=== PATIENT | female | born 1995 | race Caucasian/White ===

== ENCOUNTER 2017-04-24 18:38 | Emergency (ER) | payer OTHER ==
[2017-04-24 18:50] VITALS: BP 146/93; PULSE 72; RESP 20; TEMP 98.1
--- NOTE | 2017-04-24 19:11 | ED ---
Upper Extremity HPI - General Chief Complaint: Extremity Injury, Upper Stated Complaint: left shoulder injury Time Seen by Provider: 04/24/17 19:05 Source: patient, RN notes reviewed Mode of arrival: ambulatory Limitations: no limitations - History of Present Illness Initial Comments: 21-year-old female presents emergency Department chief complaint of left elbow pain. Patient states his pain in her bed frame together and it fell down and hurt her left elbow. Patient has noticed some bruising and some on and off swelling around the elbow since that she was concerned. Patient states that he can move the hand and arm at times. Patient states her pain is moderate. Patient states that she was not currently having any other symptoms at this time. Patient denies any recent fever, chills, shortness of breath, chest pain, back pain, abdominal pain, nausea vomiting, numbness or tingling, dysuria or hematuria, constipation or diarrhea, headaches or visual changes, or any other current symptoms. - Related Data Allergies Allergy/AdvReac Type Severity Reaction Status Date / Time No Known Allergies Allergy Verified 04/24/17 18:50 Review of Systems ROS Statement: Those systems with pertinent positive or pertinent negative responses have been documented in the HPI. ROS Other: All systems not noted in ROS Statement are negative. Past Medical History Past Medical History: No Reported History History of Any Multi-Drug Resistant Organisms: None Reported Past Surgical History: No Surgical Hx Reported Past Psychological History: No Psychological Hx Reported Smoking Status: Never smoker Past Alcohol Use History: Occasional Past Drug Use History: None Reported General Exam Limitations: no limitations Neck exam: Present: normal inspection. Absent: tenderness, meningismus, lymphadenopathy Respiratory exam: Present: normal lung sounds bilaterally. Absent: respiratory distress, wheezes, rales, rhonchi, stridor Cardiovascular Exam: Present: regular rate, normal rhythm, normal heart sounds. Absent: systolic murmur, diastolic murmur, rubs, gallop, clicks Left Shoulder Exam: Present: normal inspection, full ROM. Absent: tenderness, swelling Upper Arm exam: Present: full ROM, tenderness (Ecchymosis and swelling to the left elbow), swelling (Mild), ecchymosis. Absent: abrasion, laceration, deformity Elbow exam: Present: full ROM, tenderness (Over the ecchymosis), swelling Forearm Wrist exam: Present: normal inspection, full ROM. Absent: tenderness, swelling Hand Wrist exam: Present: normal inspection, full ROM. Absent: tenderness, swelling Back exam: Present: normal inspection Course Vital Signs 04/24/17 18:47 Temperature 98.1 F Pulse Rate 72 Respiratory 20 Rate Blood Pressure 146/93 O2 Sat by Pulse 99 Oximetry Medical Decision Making - Medical Decision Making 21-year-old female emergency department with a chief complaint of left arm injury. This time x-rays reviewed. This time she appears to the left elbow contusion. We discussed ice Motrin Tylenol. Discussed return parameters and follow-up. We discussed care. Patient states she understood all questions have been answered. She'll be discharged home. - Radiology Data Radiology results: report reviewed, image reviewed Disposition Clinical Impression: Contusion of left elbow, initial encounter Disposition: HOME SELF-CARE Condition: Stable Instructions: Contusion in Adults (ED) Additional Instructions: Patient denies any recent fever, chills, shortness of breath, chest pain, back pain, abdominal pain, nausea vomiting, numbness or tingling, dysuria or hematuria, constipation or diarrhea, headaches or visual changes, or any other current symptoms. Referrals: Criselda Faust MD [STAFF PHYSICIAN] - 1-2 days Time of Disposition: 19:44
--- NOTE | 2017-04-24 19:42 | XR ---
EXAMINATION TYPE: XR elbow complete LT DATE OF EXAM: 04/24/2017 CLINICAL HISTORY: Left elbow pain and bruising after injury. TECHNIQUE: Frontal, lateral and oblique images of the left elbow are obtained. COMPARISON: None FINDINGS: There is no acute fracture/dislocation evident in the left elbow. No abnormal fat pad sig ns are seen. The overlying soft tissue appears unremarkable. IMPRESSION: There is no acute fracture or dislocation in the left elbow.
== END 2017-04-24 19:52 | disposition home or self-care (01) ==
LOC: EC 18:38
DX: S50.02XA Contusion of left elbow, initial encounter (principal); X58.XXXA Exposure to other specified factors, initial encounter; Y93.89 Activity, other specified
CPT/HCPCS: 99283

== ENCOUNTER 2017-06-09 20:04 | Emergency (ER) | payer OTHER ==
[2017-06-09 20:25] VITALS: RESP 18
--- NOTE | 2017-06-09 21:41 | XR ---
EXAMINATION TYPE: XR chest 2V DATE OF EXAM: 06/09/2017 COMPARISON: NONE HISTORY: Syncope TECHNIQUE: Frontal and lateral views of the chest are obtained. FINDINGS: Heart and mediastinum are normal. Lungs are clear. Diaphragm is normal. Bony thorax is int act. There is a dilated gas-filled stomach. IMPRESSION: Normal chest. Large gas-filled stomach consistent with air swallowing.
--- NOTE | 2017-06-09 22:28 | ED ---
Syncope HPI - General Chief Complaint: Syncope Stated Complaint: Syncope Time Seen by Provider: 06/09/17 20:28 Source: patient Mode of arrival: ambulatory Limitations: no limitations - History of Present Illness Initial Comments: 21-year-old female with past medical history of syncopal moments presented for evaluation of 2 episodes of syncope prior to arrival to the ED. She states that she was out at an event with her friends and she got out of the van she felt her sugar catch on the door. This jerked her backwards however she denies any pain or trauma. She unhooked herself and then states that she didn't feel herself and passed out. A friend was watching her at this time and states that she just Leaned into the car and slid down the side. Loss of consciousness was seconds and then she woke up. She was helped into the car by her who then states she had another syncopal moment about 45 seconds later that lasted seconds. There was 30 seconds of confusion and that she was back at her baseline talking and conversing appropriately and laughing at jokes. EMS was called and they found her blood sugar to be 93 with appropriate blood pressure and heart rate. However given her symptoms her wanted her brought to the ED for further treatment and evaluation. She states that she had a previous episode like this some years ago and had no workup. She denies being at this time having fevers, chills, nausea, vomiting, chest pain, shortness of breath. - Related Data Home Medications Medication Instructions Recorded Confirmed EPINEPHrine [Epipen 2-Yevgeniy] 0.3 mg IM ONCE PRN 06/09/17 06/09/17 Loratadine [Claritin] 10 mg PO DAILY PRN 06/09/17 06/09/17 Allergies Allergy/AdvReac Type Severity Reaction Status Date / Time amoxicillin Allergy Unknown Verified 06/09/17 21:34 Childhood bee venom protein (honey bee) Allergy Anaphylaxis Verified 06/09/17 21:35 spider venom Allergy Anaphylaxis Verified 06/09/17 21:35 pseudoephedrine AdvReac Abdominal Verified 06/09/17 21:35 Pain Review of Systems ROS Statement: Those systems with pertinent positive or pertinent negative responses have been documented in the HPI. ROS Other: All systems not noted in ROS Statement are negative. Constitutional: Denies: fever, chills Eyes: Denies: eye pain, vision change ENT: Denies: ear pain, throat pain Respiratory: Denies: cough, dyspnea Cardiovascular: Reports: syncope. Denies: chest pain, palpitations Endocrine: Denies: fatigue, polydipsia, polyuria Gastrointestinal: Denies: abdominal pain, nausea, vomiting Genitourinary: Denies: urgency, dysuria Musculoskeletal: Denies: back pain, arthralgia Skin: Denies: rash, lesions Neurological: Reports: other. Denies: headache Psychiatric: Denies: anxiety, depression (Syncope) Hematological/Lymphatic: Denies: easy bleeding, easy bruising Past Medical History Past Medical History: No Reported History History of Any Multi-Drug Resistant Organisms: None Reported Past Surgical History: No Surgical Hx Reported Past Psychological History: No Psychological Hx Reported Smoking Status: Never smoker Past Alcohol Use History: Occasional Past Drug Use History: None Reported General Exam Limitations: no limitations General appearance: alert, in no apparent distress, anxious (Only when talking about obtaining IV access) Head exam: Present: atraumatic, normocephalic, normal inspection Eye exam: Present: normal appearance, PERRL, EOMI. Absent: scleral icterus, conjunctival injection, periorbital swelling ENT exam: Present: normal exam, mucous membranes moist Neck exam: Present: normal inspection. Absent: tenderness, meningismus, lymphadenopathy Respiratory exam: Present: normal lung sounds bilaterally. Absent: respiratory distress, wheezes, rales, rhonchi, stridor Cardiovascular Exam: Present: regular rate, normal rhythm, normal heart sounds. Absent: systolic murmur, diastolic murmur, rubs, gallop, clicks GI/Abdominal exam: Present: soft, normal bowel sounds. Absent: distended, tenderness, guarding, rebound, rigid Rectal exam: Present: deferred Extremities exam: Present: normal inspection, full ROM, normal capillary refill. Absent: tenderness, pedal edema, joint swelling, calf tenderness Back exam: Present: normal inspection Neurological exam: Present: alert, oriented X3, CN II-XII intact Psychiatric exam: Present: normal affect, normal mood Skin exam: Present: warm, dry, intact, normal color. Absent: rash Course Vital Signs 06/09/17 06/09/17 20:23 22:40 Temperature 98.9 F 98.7 F Pulse Rate 84 78 Respiratory 18 18 Rate Blood Pressure 123/79 121/74 O2 Sat by Pulse 99 100 Oximetry EKG Findings - EKG Comments: EKG Findings:: Sinus rhythm with sinus arrhythmia with short AK. Ventricular rate 66, SHERRY 102, QRS 82, QT/QTC 392/410. Medical Decision Making - Medical Decision Making 21-year-old female with a past medical history of a syncopal moments presented for evaluation of 2 syncopal moments today. No identifiable etiology preceding the event which lasted merely seconds. She has returned to her baseline and has no complaints at this time. On physical examination cranial nerves II through XII are intact without focal neurologic deficit and she has normal gait and station. Lungs are clear to auscultation bilaterally and vitals are within normal limits. EKG showed above. Chest x-ray shows no acute process. Attempted to obtain IV access for blood work over the patient became markedly anxious and agitated stating a fear of needles. The pros and cons of lab work were discussed with the patient and she still stated at this time since she was feeling at her baseline with no complaints she would like to forego any lab work and be discharged home. She was given exposes information for return to the ED and after going through multiple scenarios she acknowledged an understanding of all information provided and agreed with plan to discharge home. She is further informed to follow-up with her primary care physician this week which she stated that she would do. Disposition Clinical Impression: Syncope Disposition: HOME SELF-CARE Condition: Stable Instructions: Syncope (ED) Referrals: None,Stated [Primary Care Provider] - 1-2 days Time of Disposition: 22:28
[2017-06-09 22:41] VITALS: BP 121/74; PULSE 78; TEMP 98.7
== END 2017-06-09 22:41 | disposition home or self-care (01) ==
LOC: EC 20:04
DX: R55 Syncope and collapse (principal); Z88.0 Allergy status to penicillin; Z91.030 Bee allergy status; Z88.8 Allergy status to other drugs, medicaments and biological substances; Z91.038 Other insect allergy status
CPT/HCPCS: 71020; 93005; 99284

== ENCOUNTER 2021-09-18 13:12 | Outpatient (CLI) | payer OTHER ==
[2021-09-18 13:54] VITALS: BP 121/76; PULSE 73; RESP 18; TEMP 98.5
--- NOTE | 2021-09-20 08:05 | P.MSEPDOC ---
Presenting Problems - Arrival Data Date of Arrival on Unit: 09/18/21 Time of Arrival on Unit: 13:12 Mode of Transport: Ambulatory - Complaint OB-Reason for Admission/Chief Complaint: NST Medical History - Information : 2 Para: 1 Term: 0 : 0 Abortions: Spontaneous or Elective: 0 Number of Living Children: 1 - Gestational Age Gestational Age by NATALIE (wks/days): 36 Weeks and 2 Days - History Complications: Incompetent Cervix Comment: NST, previous cs at 32 weeks. Review of Systems - Review of Systems Constitutional: No problems Breast: No problems ENT: No problems Cardiovascular: No problems Respiratory: No problems Gastrointestinal: No problems Genitourinary: No problems Musculoskeletal: No problems Neurological: No problems Skin: No problems Vital Signs - Temperature Temperature: 98.5 F Temperature Source: Temporal Artery Scan - Pulse Right Sitting Brachial Pulse Rate: 73 Pulse Assessment Method: Automatic Cuff - Respirations Respiratory Rate: 18 Oxygen Delivery Method: Room Air O2 Sat by Pulse Oximetry: 0 - Blood Pressure Right Arm Sitting Blood Pressure: 121/76 Blood Pressure Mean: 91 Blood Pressure Source: Automatic Cuff Physician Notification - Physician Notified Physician Notified Date: 09/18/21 Physician Notified Time: 13:45 Physician: Sudeep Kurtz Order Received: Yes - Notification Comment Comment: Dc home. Follow up in the office as scheduled. Maternal Triage Index - Maternal Triage Index Presenting for scheduled procedure w/no complaint: No - Stat/Priority 1 Stat Priority 1: No - Urgent/Priority 2 Urgent Priority 2: No - Prompt/Priority 3 Prompt Priority 3: No - Non-Urgent/Priority 4 Non-Urgent Priority 4: No - Scheduled/Requesting Priority 5 Scheduled/Requesting Priority 5: Yes Criteria Met for Priority 5: NST, dx. IUGR Disposition - Disposition OB Disposition: Discharge to home Discharge Date: 09/18/21 Discharge Time: 13:50 I agree with the RN Medical Screening Exam: Yes Case reviewed; plan agreed upon as documented in EMR&OBIX.: Yes Diagnosis: RELATED CONDITIONS, UNSPECIFIED, THIRD TRIMESTER
== END 2021-09-18 13:45 | disposition home or self-care (01) ==
LOC: FBPOP 13:12
PROVIDERS: ATTEND Obstetrics & Gynecology
DX: Z36.4 Encounter for antenatal screening for fetal growth retardation (principal); Z3A.36 36 weeks gestation of pregnancy; Z88.1 Allergy status to other antibiotic agents; Z91.030 Bee allergy status; Z91.038 Other insect allergy status; Z88.5 Allergy status to narcotic agent
CPT/HCPCS: 59025

== ENCOUNTER 2021-10-04 02:42 | Inpatient (IN) | payer BC, OTHER ==
[2021-10-04] MEDS ORDERED: CARBOPROST TROMETHAMINE 250 MCG/ML 1 ML AMP IM PRN (03:40)
[2021-10-04] MEDS ORDERED: METHYLERGONOVINE 0.2 MG/ML 1 ML AMP IM PRN (03:40)
[2021-10-04] MEDS ORDERED: TERBUTALINE 1 MG/ML VIAL SQ PRN (03:40)
[2021-10-04] MEDS ORDERED: OXYTOCIN 10 UNIT/ML 1 ML VIAL IM PRN (03:40)
[2021-10-04] MEDS ORDERED: LIDOCAINE 0.5% (PF) 5 MG/ML (50 ML SDV) SQ PRN (03:40)
[2021-10-04] MEDS ORDERED: LACTATED RINGERS 1,000 ML IV SCH (03:45)
[2021-10-04] MEDS ORDERED: OXYTOCIN 30 UNITS/500 ML NS 30 UNIT in SALINE 1 500ML.BAG IV SCH ×2 (03:45→05:45)
[2021-10-04] MEDS ORDERED: CITRIC ACID-SODIUM CITRATE 15 ML CUP PO ONE (04:19)
--- NOTE | 2021-10-04 04:29 | P.HPOB ---
History of Present Illness H&P Date: 10/04/21 Chief Complaint: Spontaneous rupture of membranes This is a 25-year-old female 2 para 1 with an estimated date of confinement of 10/14/2021, estimated gestational age of 38-4/7 weeks, who presented to labor and delivery with complaints of spontaneous rupture of membr anes at approximately 1:45 AM this morning with clear fluid noted. She does complain of irregular contractions on admission which have become stronger and more regular since arrival. care has been with Dr. Kurtz and has been uncomplicated during this . She does have a previous section with her last at 32 weeks for severe intrauterine growth restriction. She is scheduled for a repeat section with tubal ligation on Saturday. labs: GC/Chlamydia/Trichomonas-negative Hepatitis B surface antigen-negative RPR-nonreactive Rubella-immune What type-O+ Antibody screen-negative HIV-nonreactive Hemoglobin-13.9 Random glucose-110 One hour Glucola-159 Three-hour Glucola-within normal limits Group B streptococcus-positive Obstetrical history: . History of 1 previous section at 32 weeks due to severe intrauterine growth restriction. weighed 2 lbs. 14 oz. Gynecologic history: Noncontributory Social history: She is . She works at a [employer]. Review of Systems Constitutional: Denies chills, Denies fever Eyes: denies blurred vision, denies pain Ears, nose, mouth and throat: Denies headache, Denies sore throat Cardiovascular: Denies chest pain, Denies shortness of breath Respiratory: Denies cough Gastrointestinal: Reports abdominal pain (Contractions) Genitourinary: Reports pelvic pain, Reports Musculoskeletal: Reports low back pain Integumentary: Denies pruritus, Denies rash Neurological: Denies numbness, Denies weakness Psychiatric: Denies anxiety, Denies depression Past Medical History Past Medical History: No Reported History History of Any Multi-Drug Resistant Organisms: None Reported Past Surgical History: Section Past Anesthesia/Blood Transfusion Reactions: No Reported Reaction Past Psychological History: No Psychological Hx Reported Smoking Status: Never smoker Past Alcohol Use History: Occasional Past Drug Use History: None Reported - Past Family History Father History Unknown: Yes Medications and Allergies Home Medications Medication Instructions Recorded Confirmed Type Aspirin 81 mg PO DAILY 09/18/21 10/04/21 History Pnv,Calcium 72/Iron/Folic Acid 1 each PO DAILY 09/18/21 10/04/21 History [ Plus Tablet] Allergies Allergy/AdvReac Type Severity Reaction Status Date / Time bee venom protein (honey bee) Allergy Anaphylaxis Verified 06/09/17 21:35 spider venom Allergy Anaphylaxis Verified 06/09/17 21:35 Exam Osteopathic Statement: *. No significant issues noted on an osteopathic structural exam other than those noted in the History and Physical/Consult. Vital Signs Temp Pulse Resp BP Pulse Ox 10/04/21 03:39 96.8 F L 80 17 128/87 100 Intake and Output 10/03/21 10/03/21 10/04/21 14:59 22:59 06:59 Other: Weight 93.894 kg HEENT: Within normal limits Heart: Regular rate and rhythm Lungs: Clear to auscultation bilaterally Abdomen: heart tones: Category 1 Contractions: Every 1-2 minutes Cervix: Positive amnisure with clear fluid noted. Cervix is 2-1/2 cm per nursing staff. Extremities: Negative Homans Assessment and Plan (1) 38 weeks gestation of Current Visit: Yes Status: Acute Code(s): Z3A.38 - 38 WEEKS GESTATION OF SNOMED Code(s): 28186934 (2) Previous delivery affecting Current Visit: Yes Status: Acute Code(s): O34.219 - MATERNAL CARE FOR UNSP TYPE SCAR FROM PREVIOUS DEL SNOMED Code(s): 128854474 (3) Family planning Current Visit: Yes Status: Acute Code(s): Z30.09 - ENCOUNTER FOR OTH GENERAL CNSL AND ADVICE ON CONTRACEPTION SNOMED Code(s): 574731223 Plan: Plan is admission for urgent repeat section with bilateral partial salpingectomy. I have discussed the risks, benefits, and alternative therapies for the above- mentioned procedure and for both sedation/anesthesia as well as necessary blood products administration, if indicated, as they pertain to this patient. The patient has indicated her understanding and acceptance of the risks and procedures discussed.
[2021-10-04 04:30] LABS: Basophils % (A) 0 %; Eosinophils # (A) 0.1 k/uL (0-0.7); Eosinophils % (A) 1 %; HCT 35.4 % (34.0-46.0); HGB 11.3 gm/dL (11.4-16.0); Hypochromasia Slight; Lymphocytes # (A) 2.9 k/uL (1.0-4.8); Lymphocytes % (A) 22 %; MCH 24.9 pg (25.0-35.0); MCV 77.7 fL (80.0-100.0); Mean Platelet Volume 9.6; Monocytes # (A) 0.7 k/uL (0-1.0); Monocytes % (A) 5 %; Neutrophils # (A) 9.2 k/uL (1.3-7.7); Neutrophils % (A) 71 %; Platelet Count 339 k/uL (150-450); Poikilocytosis Slight; RBC 4.55 m/uL (3.80-5.40); RDW 14.8 % (11.5-15.5)
[2021-10-04] MEDS ORDERED: ONDANSETRON 4 MG/2 ML VIAL ONE (04:36)
[2021-10-04] MEDS ORDERED: OXYTOCIN 30 UNITS/500 ML NS BAG IV ONE (04:36)
[2021-10-04] MEDS ORDERED: NALBUPHINE 10 MG/ML (1 ML AMP) ONE (04:36)
[2021-10-04] MEDS ORDERED: MORPHINE SULFATE (PF) 0.3 MG/0.3 ML SYR ONE (04:36)
[2021-10-04] MEDS ORDERED: ePHEDrine 50 MG/ML 1 ML AMP ONE (04:36)
[2021-10-04] MEDS ORDERED: KETOROLAC 15 MG/ML 1 ML VIAL ONE (04:36)
[2021-10-04] MEDS ORDERED: ONDANSETRON 4 MG/2 ML VIAL IVP PRN ×2 (05:18→05:45)
[2021-10-04] MEDS ORDERED: KETOROLAC 30 MG/ML 1 ML VIAL IVP PRN (05:18)
[2021-10-04] MEDS ORDERED: NALOXONE 0.4 MG/ML 1 ML VIAL IV PRN ×2 (05:18→05:45)
[2021-10-04] MEDS ORDERED: diphenhydrAMINE 50 MG/ML 1 ML VIAL IVP PRN ×3 (05:18→05:45)
[2021-10-04] MEDS ORDERED: NALBUPHINE 10 MG/ML (1 ML AMP) IV PRN (05:18)
[2021-10-04] MEDS ORDERED: HYDROmorphone 0.5 MG/0.5 ML SYRINGE IVP PRN (05:18)
--- NOTE | 2021-10-04 05:31 | P.OP ---
Date of Procedure: 10/04/21 Preoperative Diagnosis: 1. Intrauterine at 38-4/7 weeks. 2. History of previous section. 3. Family-planning. 4. Active labor. Postoperative Diagnosis: Same Procedure(s) Performed: Repeat low transverse section with bilateral partial salpingectomy Anesthesia: spinal (Duramorph) Surgeon: Cristal Iqbal Senior Director [employer]: Angie Nayak Estimated Blood Loss (ml): 100 Pathology: none sent Condition: stable Disposition: floor Indications for Procedure: This is a 25-year-old female 2 para 1 at 38-4/7 weeks who presented with spontaneous rupture membranes and was found to be in active labor. She has a history of a previous section and was scheduled for repeat section with bilateral partial salpingectomy. She requests repeat section with bilateral partial salpingectomy. I have discussed the risks, benefits, and alternative therapies for the above- mentioned procedure and for both sedation/anesthesia as well as necessary blood products administration, if indicated, as they pertain to this patient. The patient has indicated her understanding and acceptance of the risks and procedures discussed. Operative Findings: A viable female infant is noted in the vertex presentation with scores of 9 at 1 minute and 10 at 5 minutes and weight of 6 lbs. 9 oz. Normal uterus tubes and ovaries are noted. Description of Procedure: The patient is taken to the operating room where she is placed in the dorsal supine position with leftward tilt after spinal Duramorph anesthesia is given. She is prepped and draped in the normal sterile fashion. Skin was tested and found to be adequately anesthetized. A Pfannenstiel skin incision was made with a scalpel through the previous laparotomy scar. A second knife was used to carry the incision down to the underlying layer of fascia. The fascia was nicked in the midline with a scalpel and then extended laterally bilaterally with Lam scissors. The anterior lip of the fascia was grasped with 2 Marli clamps and then dissected off the underlying rectus muscle in the midline with Lam scissors. The inferior aspect of the fascial incision was grasped with 2 Marli clamps and dissected off the underlying rectus muscle and the midline with Lam scissors. Next the peritoneum layer was tented up with 2 hemostats and then entered sharply with the scalpel. The incision is extended superiorly and inferiorly with Metzenbaum scissors. Next a DeLee retractor is placed. The vesicouterine peritoneum is entered sharply with Metzenbaum scissors and extended laterally bilaterally with Metzenbaum scissors and then the bladder flap is pushed inferiorly. The lower uterine segment is incised in transverse fashion with the scalpel and then bluntly entered with a hemostat. Clear fluid is noted. The incision was then extended laterally bilaterally with 2 fingers. Next the infant's head is delivered through the incision. Nose and mouth are bulb suctioned. The remainder of the infant is easily delivered and placed on mother's abdomen. Nuchal cord times one was reduced around the body with delivery. Cord is clamped and cut. Cord blood is obtained secondary to O+ blood type. Infant is taken to warmer by nursing staff. Uterine fundus is gently massaged and placenta is delivered manually. Uterus is exteriorized and cleared of all clots and debris. Uterine incision is closed with 0 Vicryl suture in a running locked fashion. A second layer of 0 Vicryl suture is used in a running fashion for hemostasis. Once adequate hemostasis as assured, the vesicouterine peritoneum is reapproximated with 2-0 Vicryl suture in a running fashion. Attention is then turned to the tubes. The right fallopian tube is grasped in the midportion with a hemostat. The mesosalpinx is entered with Bovie cautery. 0 Vicryl suture is tied 2 times around both the distal and proximal portion of the tube. The knuckle of tube is then removed with Metzenbaum scissors. The ends of the tubes are cauterized with Bovie cautery. The same procedure is carried out on the left fallopian tube. Good hemostasis is noted. Posterior cul-de-sac is suctioned of all clots and debris. Uterus is returned to the abdomen. Incision is noted to be hemostatic. Both tubal sites are noted to be hemostatic. Peritoneal layer is closed with 0 Vicryl suture in a running fashion. Muscle layer is reapproximated with 0 Vicryl suture in interrupted fashion. Fascia layer is then closed with 0 PDS suture with 2 sutures meeting in the midline and the knots buried in either side and in the midline. The subcutaneous tissue was then closed with 2-0 Vicryl suture. Skin layer was then closed with rodríguez. All sponge and needle counts are correct. The patient is taken to recovery room in stable condition.
[2021-10-04] MEDS ORDERED: diphenhydrAMINE 50 MG CAP PO PRN (05:45)
[2021-10-04] MEDS ORDERED: HYDROmorphone 0.2 MG/1 ML SYRINGE IVP PRN (05:45)
[2021-10-04] MEDS ORDERED: HYDROmorphone 1 MG/ML 1 ML SYRINGE IVP PRN (05:45)
[2021-10-04] MEDS ORDERED: LANOLIN CREAM 5 GM TUBE TOPICAL PRN (05:45)
[2021-10-04] MEDS ORDERED: diphenhydrAMINE 25 MG CAP PO PRN (05:45)
[2021-10-04] MEDS ORDERED: ZOLPIDEM 5 MG TAB PO PRN (05:45)
[2021-10-04] MEDS ORDERED: SIMETHICONE 80 MG CHEWABLE PO PRN (05:45)
[2021-10-04] MEDS ORDERED: METOCLOPRAMIDE 5 MG/ML 2 ML VIAL IVP PRN (05:45)
[2021-10-04] MEDS: LACTATED RINGERS 1,000 ML IV SCH ×3 (05:55→22:59)
[2021-10-04] MEDS: ACETAMINOPHEN IV (For NPO) 1,000 MG in EMPTY BAG 1 BAG IVPB SCH ×2 (07:52→15:48)
[2021-10-04] MEDS: SENNOSIDES-DOCUSATE SODIUM 1 EACH TAB PO SCH ×2 (10:54→22:34)
[2021-10-04] MEDS: ACETAMINOPHEN TAB 500 MG TAB PO SCH ×3 (10:55→22:34)
[2021-10-04] MEDS: PRENATAL VIT-IRON-FOLIC ACID 1 EACH CAP PO SCH (10:55)
[2021-10-04] MEDS: IBUPROFEN 600 MG TAB PO SCH ×2 (10:56→18:27)
[2021-10-04] MEDS: KETOROLAC 30 MG/ML 1 ML VIAL IVP SCH ×2 (11:55→18:27)
[2021-10-05] MEDS: KETOROLAC 30 MG/ML 1 ML VIAL IVP SCH ×3 (00:43→19:40)
[2021-10-05] MEDS: IBUPROFEN 600 MG TAB PO SCH ×5 (02:43→22:17)
[2021-10-05] MEDS: ACETAMINOPHEN TAB 500 MG TAB PO SCH ×4 (02:44→18:33)
--- NOTE | 2021-10-05 06:38 | P.PN ---
Progress Note - Text Progress Note Date: 10/05/21 Patient without complaints. Ambulating without weakness or paresthesia. Denies headache or pruritis. Pain controlled. Spinal site clean and dry. POD#1 s/p with duramorph. Doing well
[2021-10-05 06:40] LABS: Basophils % (A) 0 %; Eosinophils # (A) 0.1 k/uL (0-0.7); Eosinophils % (A) 1 %; HCT 33.5 % (34.0-46.0); HGB 10.3 gm/dL (11.4-16.0); Hypochromasia Moderate; Lymphocytes # (A) 2.2 k/uL (1.0-4.8); Lymphocytes % (A) 21 %; MCH 24.7 pg (25.0-35.0); MCHC 30.9 g/dL (31.0-37.0); MCV 80.1 fL (80.0-100.0); Mean Platelet Volume 9.8; Monocytes # (A) 0.4 k/uL (0-1.0); Monocytes % (A) 4 %; Neutrophils # (A) 7.7 k/uL (1.3-7.7); Neutrophils % (A) 74 %; Platelet Count 254 k/uL (150-450); RBC 4.18 m/uL (3.80-5.40); WBC 10.5 k/uL (3.8-10.6)
[2021-10-05] MEDS: SENNOSIDES-DOCUSATE SODIUM 1 EACH TAB PO SCH ×2 (08:02→20:18)
--- NOTE | 2021-10-05 08:18 | P.PNOBGPC ---
Subjective - Subjective Principal diagnosis: Post op day 1 Interval history: Essie is doing very well postoperative day 1 from a repeat section. She relates she feels very well and she is up and ambulating and voiding. Plan continue care for now she is tolerating a regular diet. All questions are answered for her at this time. She voices no complaints and her pain is well- controlled. Patient reports: Reports appetite normal, Reports voiding normally, Reports pain well controlled, Reports ambulating normally : doing well Objective - Vital Signs Latest vital signs: Vital Signs Temp Pulse Resp BP Pulse Ox 10/05/21 05:56 16 98 10/05/21 04:00 98.0 F 70 16 121/70 99 10/05/21 02:00 16 98 10/05/21 00:00 97.9 F 55 L 16 122/83 97 10/04/21 22:00 85 18 99 10/04/21 19:29 97.6 F 74 18 120/68 98 10/04/21 18:00 98.0 F 82 18 122/64 97 10/04/21 16:14 97.5 F L 61 16 129/83 100 10/04/21 16:00 97.8 F 87 18 128/72 98 10/04/21 14:05 56 L 10/04/21 12:24 96.8 F L 56 L 16 125/80 100 Intake and Output 10/04/21 10/05/21 10/05/21 22:59 06:59 14:59 Intake Total 480 Output Total 320 Balance 160 Intake: Oral 480 Output: Urine 320 Other: # Voids 2 2 - Exam Lungs: bilateral: normal Chest: Normal S1, Normal S2 Extremities: Present: normal Abdomen: Present: normal appearance, soft. Absent: distention, tenderness Incision: Present: normal, dry, intact Uterus: Present: normal, firm - Labs Labs: Abnormal Lab Results - Last 24 Hours (Table) 10/05/21 Range/Units 06:27 Hgb 10.3 L (11.4-16.0) gm/dL Hct 33.5 L (34.0-46.0) % MCH 24.7 L (25.0-35.0) pg MCHC 30.9 L (31.0-37.0) g/dL
[2021-10-05] MEDS: PRENATAL VIT-IRON-FOLIC ACID 1 EACH CAP PO SCH (19:37)
[2021-10-06] MEDS: ACETAMINOPHEN TAB 500 MG TAB PO SCH ×2 (00:49→07:37)
[2021-10-06] MEDS: IBUPROFEN 600 MG TAB PO SCH ×2 (04:18→12:56)
[2021-10-06] MEDS: SENNOSIDES-DOCUSATE SODIUM 1 EACH TAB PO SCH (07:37)
[2021-10-06 09:00] VITALS: BP 108/77; PULSE 62; RESP 16; TEMP 97.8
--- NOTE | 2021-10-06 10:23 | P.DS ---
Providers Date of admission: 10/04/21 03:02 Expected date of discharge: 10/06/21 Attending physician: Sudeep Kurtz Primary care physician: Stated None Hospital Course: Essie is doing very well postop day 2. She is ambulating, voiding and tolerating her diet. She voices no complaints and is requesting discharge home today. Discharge instructions were thoroughly reviewed. Prescription for Motrin [facility]. We'll plan removal rodríguez prior discharge. She will follow up with me in 1 week. Otherwise on physical exam her vital signs are stable and afebrile. Heart regular, lungs clear, extremities without pain. Abdomen soft and incision is clean dry and intact. Lochia is reported be light. Assessment postop day 2. Plan discharged home follow up with me in 1 week. Patient Condition at Discharge: Good Plan - Discharge Summary New Discharge Prescriptions: New Ibuprofen [Motrin] 600 mg PO Q6HR PRN #30 tab PRN Reason: Pain No Action Aspirin 81 mg PO DAILY Pnv,Calcium 72/Iron/Folic Acid [ Plus Tablet] 1 each PO DAILY Discharge Medication List Aspirin 81 mg PO DAILY 09/18/21 [History] Pnv,Calcium 72/Iron/Folic Acid [ Plus Tablet] 1 each PO DAILY 09/18/21 [History] Ibuprofen [Motrin] 600 mg PO Q6HR PRN #30 tab 10/06/21 [Rx] Follow up Appointment(s)/Referral(s): Sudeep Kurtz DO [Doctor of Osteopathic Medicine] - 1 Week (Post Op 10-13-2021 at 01:30) Activity/Diet/Wound Care/Special Instructions: Lifting, limit stairs and driving, and pelvic rest. If any high temperatures, heavy bleeding, or severe pain call my office. No tub baths for 2 weeks, showering is fine. Discharge Disposition: HOME SELF-CARE
== END 2021-10-06 13:00 | disposition home or self-care (01) | DRG 785 ==
LOC: FBPOP 02:42 → 4FBP 03:02
PROVIDERS: ADMIT Obstetrics & Gynecology; ATTEND Obstetrics & Gynecology
PROC: 0UB70ZZ Excision of Bilateral Fallopian Tubes, Open Approach (ICD-10-PCS; principal; 2021-10-04 04:28)
PROC: 10D00Z1 Extraction of Products of Conception, Low, Open Approach (ICD-10-PCS; principal; 2021-10-04 04:28)
DX: O34.211 Maternal care for low transverse scar from previous cesarean delivery (principal); O75.82 Onset (spontaneous) of labor after 37 completed weeks of gestation but before 39 completed weeks gestation, with delivery by (planned) cesarean section; O99.62 Diseases of the digestive system complicating childbirth; K21.9 Gastro-esophageal reflux disease without esophagitis; O69.81X0 Labor and delivery complicated by cord around neck, without compression, not applicable or unspecified; N85.8 Other specified noninflammatory disorders of uterus; Z30.2 Encounter for sterilization; Z37.0 Single live birth; Z3A.38 38 weeks gestation of pregnancy; Z79.82 Long term (current) use of aspirin; Z79.899 Other long term (current) drug therapy; Z91.030 Bee allergy status; Z91.038 Other insect allergy status
CPT/HCPCS: 59025; 84112; 85025; 86850; 86900; 86901; 88302; 99213